=== PATIENT | female | born 2000 | race Caucasian/White ===

== ENCOUNTER 2021-06-05 16:32 | Emergency (ER) | payer MEDICAID ==
[~2021-06-05] VITALS: Ht 160 cm; Wt 76.7 kg
[2021-06-05 16:34] VITALS: BP 119/77
[2021-06-05] MEDS ORDERED: ALUMINUM HYD/MAG/SIMETHICONE 30 ML UDC PO ONE (16:55)
--- NOTE | 2021-06-05 17:00 | NUR ---
LAB AT PT BEDSIDE
[2021-06-05 17:21] LABS: BASOPHILS % (AUTO) 0.1 % (0.0-2.0); HEMATOCRIT 44.5 % (36-48); LYMPHOCYTES # (AUTO) 0.7 K/uL (2.5-16.5); LYMPHOCYTES % (AUTO) 9.5 % (20.5-51.1); MEAN CORPUSCULAR HEMOGLOBIN 30 pg (27-31); MEAN CORPUSCULAR HGB CONC 34 g/dL (33-37); MEAN CORPUSCULAR VOLUME 88.8 fL (80-94); MONOCYTES # (AUTO) 0.5 K/uL (0.8-1.0); MONOCYTES % (AUTO) 6.9 % (1.7-9.3); NEUTROPHILS # (AUTO) 5.7 K/uL (1.8-7.7); NEUTROPHILS % (AUTO) 83.5 % (42.2-75.2); PLATELET COUNT (AUTO) 258 K/uL (140-450); RED BLOOD CELL COUNT(AUTO) 5.01 MIL/uL (4.20-5.40); RED CELL DISTRIBUTION WIDTH 12.5 % (11.6-13.7); WHITE BLOOD COUNT (AUTO) 6.9 K/uL (4.8-10.8)
--- NOTE | 2021-06-05 17:23 | NUR ---
20 Y/O FEMALE BIB SELF C/O ABDOMINAL PAIN SINCE THIS MORNING. PAIN CURRENTLY IS RATED 10/10 CRAMPING TYPE OF PAIN. PAIN IS NON-RADIATING. PT DENIES N/V/D. LBM TODAY. NO MEDS TAKEN. PT ALERT AND ORIENTED X4. BED IN LOWEST POSITION. BED RAILX1. PMH: CSECTION X 1 MEDS: NONE NKA
--- NOTE | 2021-06-05 17:23 | NUR ---
US AT PT BEDSIDE
[2021-06-05 17:42] LABS: ALBUMIN 3.7 g/dL (3.4-5.0); ANION GAP 14.3 (8-16); CARBON DIOXIDE 20.1 mmol/L (21-32); CREATININE 0.8 mg/dL (0.6-1.3); POTASSIUM 3.4 mmol/L (3.5-5.1); TOTAL BILIRUBIN 0.6 mg/dL (0.0-1.0)
[2021-06-05] MEDS ORDERED: POTASSIUM CHLORIDE 10 MEQ TABER PO ONE (17:55)
[2021-06-05 19:00] VITALS: BP 119/77
--- NOTE | 2021-06-05 19:01 | NUR ---
Patient discharged with v/s stable. Written and verbal after care instructions given and explained. Patient verbalized understanding. Ambulatory with steady gait. All questions addressed prior to discharge. Advised to follow up with PMD.
== END 2021-06-05 19:00 | disposition home or self-care (01) ==
LOC: MED 16:32
DX: R10.13 Epigastric pain (principal); R19.7 Diarrhea, unspecified; F12.90 Cannabis use, unspecified, uncomplicated; J45.909 Unspecified asthma, uncomplicated
CPT/HCPCS: 36415; 76705; 80053; 81002; 81025; 83690; 85025; 99284; Q0092